=== PATIENT | male | born 2000 | race Caucasian/White ===

== ENCOUNTER 2022-09-06 15:42 | Emergency (ER) | payer OTHER, SELFPAY ==
[2022-09-06 16:57] VITALS: BP 108/59; PULSE 59; RESP 18; TEMP 36.2; O2SAT 98; BMI 23.5
--- NOTE | 2022-09-06 17:26 | PC.NURSE ---
Visual irene intact, pt states I feel like there is just a scratch, but I can still see fine .
[2022-09-06] MEDS: Tetracaine HCl/PF 0.5% Oph Sol 4 ML DROPS 3 DROP EYE-BOTH (17:58)
[2022-09-06] MEDS: Fluorescein Sodium STRIP 1 STRIP EYE-LEFT ×2 (17:59)
--- NOTE | 2022-09-06 18:02 | ED.GENADULT ---
HPI - General Adult General Chief complaint: Eye Problems Stated complaint: left eye pain Time Seen by Provider: 09/06/22 17:43 Source: patient Mode of arrival: ambulatory Limitations: no limitations History of Present Illness HPI narrative: 22 yold male presents to the For left eye discomfort after he poked in the eye at work yesterday by [employer]. Patient denies headache, nausea, vomitting, loss of visions, or bleeding in eyes. Related Data Previous Rx's Medication Instructions Recorded erythromycin 5 mg/gram (0.5 %) eye 0.5 inch ophthalmic (eye) QID 7 09/06/22 ointment days #3.5 grams naproxen 500 mg tablet 500 mg PO BID PRN pain 10 days #20 09/06/22 tabs Allergies Allergy/AdvReac Type Severity Reaction Status Date / Time No Known Allergies Allergy Unverified 08/06/20 16:53 Review of Systems Review of Systems: LEft eye discomfort Yes all other systems are reviewed and are negative [facility] Social History Social History Advance Directives: No Advance Directives Information Provided: No Physical Exam ED Vital Signs: Vital Signs - 24 hr 09/06/22 16:57 Temperature 97.2 F Pulse Rate 59 Respiratory Rate 18 Blood Pressure 108/59 L Pulse Oximetry 98 Oxygen Delivery Method Room Air BMI result Body Mass Index 23.5 Const General: cooperative, healthy appearing, comfortable, no acute distress, well developed, alert, awake and Physically active Orientation/consciousness: oriented to person, oriented to place, oriented to time and patient oriented x3 HENMT Head: Yes normal to inspection, Yes No palpable skull fracture present, Yes normocephalic, Yes atraumatic and No abrasion Eyes General: appearance normal, both eyes and all related structures Neck Neck: Yes normal visual inspection, Yes full ROM, Yes no lymphadenopathy, Yes no meningeal signs, Yes trachea midline, Yes supple, No anterior neck swelling and No tender Chest Chest palpation & inspection: normal inspection of the chest and normal palpation of entire chest wall Resp Effort & Inspection: normal respiratory effort and able to speak in complete sentences Auscultation: clear to auscultation bilaterally Cardio Jugular venous distension: no JVD Heart sounds: S1 normal heart sound present and S2 normal heart sound present GI Inspection: Yes normal to inspection and No abdominal wall ecchymosis Palpation (GI): Soft to palpation, not firm, nontender, no guarding and not rigid General: No CVA tenderness and Yes no CVA tenderness Back/Spine/Pelvis Back: no CVA tenderness, No CVA tenderness and No back tenderness Skin General skin exam: no rashes or lesions noted and elasticity normal Neuro General: oriented to person, oriented to place, oriented to time, patient oriented x3, gait normal, tone normal, moves all extremities, Normal light touch and pain sensation, no meningeal signs, no focal motor deficits and CN's II-XI intact bilaterally Extrem General: Yes normal to inspection and Yes full ROM Psych Appearance: grossly normal, well kempt and not disheveled Course Course Course Narrative: Will DO eye exam Reevaluation(s) Reevaluation #1: BOth eyes evaluated with tetracaine, flourscein dye, and wood's lamp. Right eye is normal. Left eye is positive for corneal abrasion. Visual acuity in both eyes 20/25 Time: 18:38 Medical Decision Making MDM Narrative Medical decision making narrative: LEft eye corneal abrasions Discharge Plan Discharge Clinical Impression: Corneal abrasion Patient Disposition: Home, Self-Care Instructions: Corneal Abrasion (ED) Additional Instructions: You will be discharged with eye ointment anitbiotic. Please follow up with eye Doctor. Return to the ED for any loss or change in visions, severe pain, worsening eye redness, fever, chills, headache, eye discharge, or any other concerning symptoms. Prescriptions: New erythromycin 5 mg/gram (0.5 %) ointment 0.5 inch ophthalmic (eye) QID 7 Days Qty: 3.5 0RF naproxen 500 mg tablet 500 mg PO BID PRN (Reason: pain) 10 Days Qty: 20 0RF Referrals: [facility] [Outside] (Left eye corneal abrasion occurring at work) Konstantin Euceda [Physician] - (Left eye corneal abrasions) Stand Alone Forms: Work/School Release Interventions: ED Discharge Assessment Last Done: 09/06/22 19:13 Discharge Date/Time: 09/06/22 19:13 Print Language: Lithuanian
[2022-09-06] MEDS: Diphth,Pertus(ACell),Tet Adult 0.5 ML SYRINGE IM (19:10)
== END 2022-09-06 19:13 | disposition home or self-care (01) ==
PROVIDERS: Emergency Provider Emergency Medicine
DX: S05.01XA Injury of conjunctiva and corneal abrasion without foreign body, right eye, initial encounter (principal); X58.XXXA Exposure to other specified factors, initial encounter; Y93.9 Activity, unspecified; Y92.9 Unspecified place or not applicable; Y99.9 Unspecified external cause status
CPT/HCPCS: 90471; 90715; 99282; 99283; 99284